=== PATIENT | female | born 1955 | race Caucasian/White ===

== ENCOUNTER 2016-09-13 18:37 | Inpatient (IN) | payer OTHER ==
[2016-09-13 19:50] LABS: AUTOMATED EOSINOPHIL 0.1 % (0-5)
[2016-09-13 20:01] LABS: BLOOD UREA NITROGEN 11 MG/DL (7-17); CALCIUM 9.5 MG/DL (8.4-10.2); CALCULATED OSMOLALITY 268 MOs/Kg (270-290); CHLORIDE 101 mEq/L (98-107); GLUCOSE 152 MG/DL (70-99); SODIUM LEVEL 138 mEq/L (137-146); TOTAL PROTEIN 7.7 G/DL (6.3-8.2)
[2016-09-13 20:11] LABS: AUTOMATED BASOPHIL 0.9 % (0-2); AUTOMATED LYMPH 8.9 % (17-44); AUTOMATED NEUTROPHIL 83.1 % (45-76); MPV 9.1 fL (7.4-10.4)
[2016-09-13] MEDS ORDERED: NS 2,000 ML IV ONE (22:30)
[2016-09-13] MEDS ORDERED: FENTANYL 100 MCG/2 ML VIAL IV ONE (22:30)
--- NOTE | 2016-09-13 22:37 | EDPRACDOC ---
- General Information Chief Complaint: Female Urogenital Problems Stated Complaint: LOWER BACK PAIN Time Seen by Provider: 09/13/16 22:11 Information Source: Patient Mode Of Arrival: Car Home Medications: Home Medications Amlodipine [Norvasc] 10 mg PO DAILY 07/02/15 Cholecalciferol [Vitamin D3 (cholecalciferol)] 1,000 units PO DAILY 07/02/15 Furosemide [Lasix] 80 mg PO DAILY 07/02/15 Loratadine [Claritin] 10 mg PO DAILY 07/02/15 Omeprazole Magnesium [Prilosec Otc] 20 mg PO DAILY 07/02/15 Potassium Chloride [Klor-Con M20] 20 meq PO DAILY 07/02/15 Pregabalin [Lyrica] 100 mg PO TID 07/02/15 Promethazine [Phenergan] 25 mg CO Q6H PRN 07/02/15 Vitamin B Complex 1 tab PO DAILY 07/02/15 Alprazolam [Xanax] 0.25 mg PO Q6H PRN 03/02/16 Amphet Asp/Amphet/D-Amphet [Adderall 20 mg Tablet] 20 mg PO DAILY 03/02/16 Biotin 5 mg PO DAILY 03/02/16 Canagliflozin [Invokana] 100 mg PO DAILY 03/02/16 Cinnamon Bark [Cinnamon] 1,000 mg PO DAILY 03/02/16 Amitriptyline HCl 50 mg PO QHS #30 tablet 03/04/16 Cefuroxime Axetil [Ceftin] 500 mg PO BID #14 tablet 03/04/16 Citalopram (anti-depressant) [Celexa] 20 mg PO DAILY #30 tablet 03/04/16 Hydromorphone HCl [Dilaudid] 2 mg PO Q12H PRN #30 03/04/16 Nystatin 1 applic TOP BID #30 grams 03/04/16 Probiotic Blend [Taylor Q] 1 tab PO BIDLS #30 tablet 03/04/16 Tramadol HCl [Ultram] 50 mg PO Q6H PRN #30 03/04/16 Trazodone HCl [Desyrel] 50 mg PO QHS #30 tablet 03/04/16 Allergies/Adverse Reactions: Allergies Allergy/AdvReac Type Severity Reaction Status Date / Time Penicillins Allergy Severe Hives* Verified 04/27/16 13:19 codeine [Codeine] Allergy Unknown Nausea/Vomi Verified 04/27/16 13:19 ting Latex, Natural Rubber Allergy Rash-Locali Verified 04/27/16 13:19 zed - History of Present Illness HPI: DYSURIA URGENCY AND FREQUENCY FOR ONE WEEK, HAS SEEN PCP, CC UA + FOR INFECTION. STARTED ON AUGMENTIN. PT STATES C&S SHOWED AUG APPROPRIATE. ALSO PAIN IN PERINEUM. PRESENT FOR ONE WEEK. NO ALLEV OR AGG FACTORS. NEVER HAD BEFORE. PAIN INTENSE. PT HAS ALSO HAD DIARRHEA FOR ONE WEEK, PRIOR TO STARTING ABX. 1-2 PER DAY. PT STATES SHE HAS BEEN EATING AND DRINKING PER NORMAL, BUT IS EXTREMELY THIRSTY NOW. Onset: one week : No (hyst) ED Past Medical History - Patient Medical History Cardiac History: Reports: Atrial Fibrillation, Hypertension, Congestive Heart Failure, Hypercholesterolemia. Denies: Heart Attack Respiratory History: Reports: Asthma, COPD, Emphysema (and Intubated/mech vent 08/2014 at [facility] [address] due to sepsis) GI/ History: Reports: Renal Disease (ACUTE RENAL FAILURE 08/2014 DUE TO SEPTICEMIA. Resolved.), Kidney (Renal Surgery) (Stent placement and removal), Urinary Tract Infection (recurrent. Has Left stent. Dr. Harris.), Gastroesophageal Reflux, Diverticulosis, PMH GI Yes/No Other (LEFT KIDNEY DECREASED FUNCTION H/O HYDRO S/P STENT) Musculoskeletal History: Reports: Arthritis (severe, chronic R ankle pain. Fibromyalgia.) Psychological History: Reports: Anxiety. Denies: Depression, Substance Use Disorder Systemic History: Reports: Diabetes (Type 2, with severe peripheral neuropathy.) . Denies: Cancer Additional Past Medical History: fibromyalgia, CHRONIC PAIN (DILAUDID) Surgical History: Reports: Cholecystectomy, Hysterectomy, Tonsillectomy/ Adnoidectomy, Other (R ankle fracture repair. Lumbar disc surgery.) - Family Medical History Reports: Hypertension (Mother), Cancer (Father: colon cancer), Cardiac Disorders (Mother: CHF.), Respiratory Disorders. Denies: Diabetes, Stroke - Social Medical History Smoking Status: Heavy tobacco smoker (5 or more cigarettes/day or daily pipe/ cigar) Social History: Denies: Substance Use Disorder EDM Review of Systems - Review of Systems ROS Negative Except as Marked: Yes All systems reviewed and were negative except as marked ROS Unobtainable: Yes Review of systems cannot be obtained due to the patient's medical condition - Physical Exam Constitutional: Alert, Confused (OR EVASIVE??), Distress (UNCOMFORTABLE) Oriented to: Person, Not Oriented, Other Last recorded Vital Signs: Last Vital Signs Temp 98.5 F 09/13/16 19:28 Pulse 88 09/13/16 19:28 Resp 20 09/13/16 19:28 BP 169/77 09/13/16 19:28 Pulse Ox 96 09/13/16 19:28 Oxygen Pulse Oxygen Saturation 96 O2 Device Room Air Oxygen Flow Rate Fraction of Inspired Oxygen ( FIO2) - HEENT Head: Normal Oropharynx: Membranes Dry (EXTREMELY) Neck: Normal - Respiratory/Cardiovascular Respiratory: Normal - CTA Cardiovascular: Normal - GI Tenderness: Diffuse, Mild. negative: Guarding, Rebound, Rigidity - Bladder: Tender External: Rash (DIFFUSE ERYTHEMATOUS MACULAR PAPULAR LESIONS WITH VESICLES, EXQUISITLY TTP. NO CREPITANCE. (?? HERPETIC VS CANDIDAL)) - Musculoskeletal Back: Normal Extremities: Normal - Integumentary Skin: Normal, Warm, Cool - Neurologic Memory Impaired: Short-term Motor Function: Normal Cerebellar: Normal Mood Description: Anxious Thought: Flight of Ideas (SOMEWHAT), Rambling Conversation. negative: Coherent Perception: Normal - Re-evaluation Re-evaluation 3 Re-evaluation Time: 00:53 (STILL MARKED CONFUSION.) - Results 09/13/16 19:32 09/13/16 19:32 WBC 13.7 xk/uL (3.8-10.8) H 09/13/16 19:32 RBC 4.95 xM/uL (4.20-5.40) 09/13/16 19:32 Hgb 13.9 g/dL (12.0-16.0) 09/13/16 19:32 Hct 42.1 % (36-47) 09/13/16 19:32 MCV 85 fL (81-99) 09/13/16 19:32 MCH 28.0 pg (27-32) 09/13/16 19:32 MCHC 32.9 g/dl (33-36) L 09/13/16 19:32 RDW 14.8 % (11.5-14.5) H 09/13/16 19:32 Plt Count 229 xk/uL (130-400) 09/13/16 19:32 MPV 9.1 fL (7.4-10.4) 09/13/16 19:32 Neut % (Auto) 83.1 % (45-76) H 09/13/16 19:32 Lymph % (Auto) 8.9 % (17-44) L 09/13/16 19:32 [place] % (Auto) 7.0 % (3-10) 09/13/16 19:32 Eos % (Auto) 0.1 % (0-5) 09/13/16 19:32 Baso % (Auto) 0.9 % (0-2) 09/13/16 19:32 Absolute Neuts (auto) 11.37 xk/uL (1.7-8.2) H 09/13/16 19:32 Absolute Lymphs (auto) 1.10 xk/uL (0.65-4.75) 09/13/16 19:32 Sodium 138 mEq/L (137-146) 09/13/16 19:32 Potassium 2.9 mEq/L (3.5-5.1) L 09/13/16 19:32 Chloride 101 mEq/L (98-107) 09/13/16 19:32 Carbon Dioxide 23 mMOL/L (22-33) 09/13/16 19:32 Anion Gap 17 mEq/L (8-16) H 09/13/16 19:32 BUN 11 MG/DL (7-17) 09/13/16 19:32 Creatinine 0.70 MG/DL (0.52-1.04) 09/13/16 19:32 Estimated GFR (MDRD) > 60 mL/min (>=60) 09/13/16 19:32 Glucose 152 MG/DL (70-99) H 09/13/16 19:32 Calculated Osmolality 268 MOs/Kg (270-290) L 09/13/16 19:32 Calcium 9.5 MG/DL (8.4-10.2) 09/13/16 19:32 Total Bilirubin 1.2 MG/DL (0.2-1.3) 09/13/16 19:32 AST 26 IU/L (14-36) 09/13/16 19:32 ALT 21 IU/L (9-52) 09/13/16 19:32 Alkaline Phosphatase 125 IU/L (55-165) 09/13/16 19:32 Total Protein 7.7 G/DL (6.3-8.2) 09/13/16 19:32 Albumin 4.1 G/DL (3.5-5.0) 09/13/16 19:32 Lipase 53 U/L (23-300) 09/13/16 19:32 Lab Results 09/13/16 09/13/16 19:32 19:32 WBC 13.7 H RBC 4.95 Hgb 13.9 Hct 42.1 MCV 85 MCH 28.0 MCHC 32.9 L RDW 14.8 H Plt Count 229 MPV 9.1 Neut % (Auto) 83.1 H Lymph % (Auto) 8.9 L [place] % (Auto) 7.0 Eos % (Auto) 0.1 Baso % (Auto) 0.9 Absolute Neuts (auto) 11.37 H Absolute Lymphs (auto) 1.10 Sodium 138 Potassium 2.9 L Chloride 101 Carbon Dioxide 23 Anion Gap 17 H BUN 11 Creatinine 0.70 Estimated GFR (MDRD) > 60 Glucose 152 H Calculated Osmolality 268 L Calcium 9.5 Total Bilirubin 1.2 AST 26 ALT 21 Alkaline Phosphatase 125 Total Protein 7.7 Albumin 4.1 Lipase 53 - EKG EKG #1 EKG Time: 23:02 -: Yes EKG interpreted by me Rate: bpm: 80 [place]: Normal Rhythm: NSR Block: None Hypertrophy: None ST: Normal - Departure Disposition: Admit IP To This Hospital Condition: Stable Final Diagnosis: Toxic metabolic encephalopathy, Candidiasis of vulva and vagina, Dehydration, Pyelonephritis, acute, Hypokalemia Diarrhea Qualifiers: Diarrhea type: unspecified type Qualified Code(s): R19.7 - Diarrhea, unspecified Instructions: Urinary Tract Infection in Women (ED), Dysuria, Acute Diarrhea ( ED) Education/Counseling Given To: Patient Education/Counseling Given Regarding: Diagnosis, Treatment, Prognosis Referrals: Umer Harris MD [Staff Physician] - As Needed Rayna Mojica NP [Primary Care Provider] - As Needed Decision to Admit Time: 01:01 Decision to admit date: 09/14/16 Decision to admit: from ED - Physician Consulted Hospitalist Time Called: 01:01 Provider Called: Gordon Hall [employer] Returned Call: 01:01
[2016-09-13 22:58] LABS: LEUKOCYTES/URINE 2+ (NEGATIVE); NITRITE/URINE NEG (NEGATIVE); URINE OCCULT BLOOD 2+ (NEG/TRACE); WBC/URINE TNTC (0-5)
[2016-09-13] MEDS ORDERED: Pharmacy Review for Metformin - IV Contrast Given SCH (23:00)
[2016-09-13 23:39] LABS: PARTIAL THROMB. TIME 25.7 SEC (22-35); PT-INR 1.1
[2016-09-14] MEDS ORDERED: KCl 10 mEq/100 ml Premix (Run) 10 MEQ/100 ML RTU IV ONE (00:07)
--- NOTE | 2016-09-14 00:54 | DIRPT ---
CLINICAL DATA: 60-year-old female with perineal infection. Evaluate for necrotizing fasciitis. EXAM: CT PELVIS WITH CONTRAST TECHNIQUE: Multidetector CT imaging of the pelvis was performed using the standard protocol following the bolus administration of intravenous contrast. CONTRAST: 100 cc Isovue 370 COMPARISON: CT dated 08/13/2016 FINDINGS: No free air or free fluid identified within the pelvis. There is partial visualization of the inferior pole of the right kidney. There is mild haziness of the perinephric fat concerning for pyelonephritis. Correlation with urinalysis recommended. The urinary bladder is only partially distended. Hysterectomy. Loose stool noted throughout the colon compatible with diarrheal state. There is mild haziness of the wall of the visualized portion of the colon which may be reactive. Colitis is not excluded. Correlation with clinical exam and stool cultures recommended. No dilated bowel loops identified. There is mild aortoiliac atherosclerotic disease. No adenopathy. Small fat containing umbilical and left inguinal hernias. There is no fluid collection or abscess in the perineal region. No soft tissue gas identified. A 1.1 x 1.0 cm ill-defined hypodensity in the lower vagina (series 3, image 44) is not well evaluated. No discrete drainable fluid collection/abscess noted in the subcutaneous soft tissues of the perineum. No soft tissue gas identified. The osseous structures are grossly unremarkable. IMPRESSION: Small ill-defined low attenuating focus in the lower vagina may represent small amount of fluid. No discrete drainable fluid collection/ abscess identified in the subcutaneous soft tissues of the perineal region. No soft tissue gas noted. Mild haziness of the fat surrounding the inferior pole of the right kidney concerning for UTI. Correlation with urinalysis recommended. Diarrheal state. Correlation with clinical exam and stool cultures recommended. Electronically Signed By: Lex Severino M.D. On: 09/14/2016 00:51
[2016-09-14] MEDS ORDERED: Fluconazole 200 mg in NS 200 MG/100 ML ML IV ONE ×2 (00:57→09:00)
[2016-09-14] MEDS ORDERED: CEFTRIAXONE 1 GM in D5W 100 ML IV ONE (00:57)
[2016-09-14] MEDS ORDERED: HYDROmorphone 1 MG INJECTION IV ONE (02:13)
--- NOTE | 2016-09-14 05:16 | HISTPHYS ---
- Chief Complaint not feeling well - History of Present Illness PRIMARY CARE PROVIDER: Rayna Mojica HPI: The patient is a 60 yo woman with recurrent severe UTIs who presents with abdominal and back pain. Patient's history is slightly limited due to her confusion/altered mental status. Onset: Started a few weeks ago but worse in last few days. Duration: intermittent. Location: upper abdomen and periumbilical. Radiation: left flank and left back Character: 8/10. Cramping. Alleviated by: Nothing. Exacerbated by: Nothing. Associated Symptoms: Diarrhea and lost control of bowels. Dysuria and hematuria. Rash in vaginal area: she has not noticed it. Confusion. Treatments: none at home except usual medications. Of note: patient has had episodes of UTIs quickly turning to severe sepsis with metabolic encephalopathy, then with IVFs developing respiratory failure and requiring emergent treatment including intubation. The emergency department nurse gave additional history that the patient was in the waiting room and had diarrhea that came out onto the chair and floor, and that as she was brought back to the treatment area she trailed a line of diarrhea behind her on the floor. - Medical History Cardiac History: Reports: Atrial Fibrillation, Hypertension, Congestive Heart Failure, Hypercholesterolemia. Denies: Heart Attack Respiratory History: Reports: Asthma, COPD, Emphysema (and Intubated/mech vent 08/2014 at [facility] due to sepsis) GI/ History: Reports: Renal Disease (ACUTE RENAL FAILURE 08/2014 DUE TO SEPTICEMIA. Resolved.), Kidney (Renal Surgery) (Stent placement and removal), Urinary Tract Infection (recurrent. Has Left stent. Dr. Harris.), Gastroesophageal Reflux, Diverticulosis, PMH GI Yes/No Other (LEFT KIDNEY DECREASED FUNCTION H/O HYDRO S/P STENT) Musculoskeletal History: Reports: Arthritis (severe, chronic R ankle pain. Fibromyalgia.) Systemic History: Reports: Diabetes (Type 2, with severe peripheral neuropathy.) . Denies: Cancer Psychological History: Reports: Anxiety. Denies: Depression, Substance Use Disorder - Surgical History Reports: Cholecystectomy, Hysterectomy, Tonsillectomy/Adnoidectomy, Other (R ankle fracture repair. Lumbar disc surgery.) - Medictions/Allergies Allergies Penicillins Allergy (Severe, Verified 04/27/16 13:19) Hives* codeine [Codeine] Allergy (Unknown, Verified 04/27/16 13:19) Nausea/Vomiting Latex, Natural Rubber Allergy (Verified 04/27/16 13:19) Rash-Localized Home Medications Amlodipine [Norvasc] 10 mg PO DAILY 07/02/15 Cholecalciferol [Vitamin D3 (cholecalciferol)] 1,000 units PO DAILY 07/02/15 Furosemide [Lasix] 80 mg PO DAILY 07/02/15 Loratadine [Claritin] 10 mg PO DAILY 07/02/15 Omeprazole Magnesium [Prilosec Otc] 20 mg PO DAILY 07/02/15 Potassium Chloride [Klor-Con M20] 20 meq PO DAILY 07/02/15 Pregabalin [Lyrica] 100 mg PO TID 07/02/15 Promethazine [Phenergan] 25 mg AL Q6H PRN 07/02/15 Vitamin B Complex 1 tab PO DAILY 07/02/15 Alprazolam [Xanax] 0.25 mg PO Q6H PRN 03/02/16 Amphet Asp/Amphet/D-Amphet [Adderall 20 mg Tablet] 20 mg PO DAILY 03/02/16 Biotin 5 mg PO DAILY 03/02/16 Canagliflozin [Invokana] 100 mg PO DAILY 03/02/16 Cinnamon Bark [Cinnamon] 1,000 mg PO DAILY 03/02/16 Amitriptyline HCl 50 mg PO QHS #30 tablet 03/04/16 Cefuroxime Axetil [Ceftin] 500 mg PO BID #14 tablet 03/04/16 Citalopram (anti-depressant) [Celexa] 20 mg PO DAILY #30 tablet 03/04/16 Hydromorphone HCl [Dilaudid] 2 mg PO Q12H PRN #30 03/04/16 Nystatin 1 applic TOP BID #30 grams 03/04/16 Probiotic Blend [Taylor Q] 1 tab PO BIDLS #30 tablet 03/04/16 Tramadol HCl [Ultram] 50 mg PO Q6H PRN #30 03/04/16 Trazodone HCl [Desyrel] 50 mg PO QHS #30 tablet 03/04/16 - Family History Reports: Hypertension (Mother), Cancer (Father: colon cancer), Cardiac Disorders (Mother: CHF.), Respiratory Disorders. Denies: Diabetes, Stroke - Social History Smoking Status: Heavy tobacco smoker (5 or more cigarettes/day or daily pipe/ cigar) Social History: Denies: Substance Use Disorder - Review of Systems GENERAL: Fever, chills, diaphoresis. Positive for fatigue/malaise. HEENT: No ear pain or discharge. No nasal discharge or bleeding. No throat pain or swelling. No eye pain or eye redness. RESPIRATORY: Mild shortness of breath. No cough, wheezing. CARDIOVASCULAR: No chest pain or palpitations. GI: Nausea, abdominal pain, diarrhea. No constipation, or bloody stool. NEUROLOGICAL: No headache or focal weakness. INTEGUMENT: no rashes, itching, or lesions. LYMPHATIC SYSTEM: no lymph node swelling or pain. MUSCULOSKELETAL: no pain or joint swelling. GENITOURINARY: No dysuria or hematuria. ENDOCRINE: No polyuria or polydipsia. HEME: No chronic anemia, bleeding, or easy bruising. - Physical Exam Vital Signs: Initial Vitals Temperature 98.5 F 09/13/16 19:28 Pulse Rate 88 09/13/16 19:28 Respiratory Rate 20 09/13/16 19:28 Blood Pressure 169/77 09/13/16 19:28 Pulse Oxygen Saturation 96 09/13/16 19:28 - Other Exam Other Exam Findings: GENERAL: Ill-appearing, obese, in acute distress. HEENT: Normocephalic, atraumatic; pupils equal and round. Nares patent, without discharge or bleeding. No oropharyngeal lesions or erythema. Mucous membranes are dry. NECK: is supple, no masses, trachea midline. Large neck circumference. RESPIRATORY: Clear to auscultation bilaterally. Chest wall movements are symmetric. No use of accessory muscles to breathe. No wheezing, rales, rhonchi. CARDIOVASCULAR: Normal S1, S2. No rubs, or gallops. PMI non-displaced. Carotids : no carotid bruits. No bradycardia or tachycardia. DP pulses 2+ bilaterally. GI: soft, non-distended, normal active bowel sounds. No hepatosplenomegaly. Tenderness generalized. CVA tenderness. No rebound or guarding. INTEGUMENT: Clean, dry, and intact. Perineum and buttocks, upper thighs: erythematous papular rash, tender to palpation. /INSPECTOR STRUCTURAL BONDING: External examination: Generalized tenderness, erythematous papular rash also involving the labia and vaginal area. No abscess identified. No vaginal discharge. MUSCULOSKELETAL: Moving all extremities. No cyanosis. No clubbing. Edema: 1+ pitting edema bilaterally. NEUROLOGICAL: Cranial nerves 2-12 grossly intact. Motor 4/5 throughout. Reflexes : 2+ bilaterally. Babinski: toes downgoing bilaterally. Intact Finger to nose. Sensory grossly intact to light touch. Intact rapid alternating movements bilaterally. No pronator drift. PSYCHIATRIC: Oriented to person and place. Not oriented to date or year. Sometimes responds to questions with answers that do not address the question. LYMPHATIC: No cervical lymphadenopathy. No supraclavicular lymphadenopathy. - Lab Results Laboratory Tests 09/13/16 09/13/16 09/13/16 19:32 19:32 19:32 WBC 13.7 H RBC 4.95 Hgb 13.9 Hct 42.1 MCV 85 MCH 28.0 MCHC 32.9 L RDW 14.8 H Plt Count 229 MPV 9.1 Neut % (Auto) 83.1 H Lymph % (Auto) 8.9 L [place] % (Auto) 7.0 Eos % (Auto) 0.1 Baso % (Auto) 0.9 Absolute Neuts (auto) 11.37 H Absolute Lymphs (auto) 1.10 PT INR APTT Sodium 138 Potassium 2.9 L Chloride 101 Carbon Dioxide 23 Anion Gap 17 H BUN 11 Creatinine 0.70 Estimated GFR (MDRD) > 60 Glucose 152 H POC Capillary Glucose Hemoglobin A1c 7.0 H Calculated Osmolality 268 L Lactic Acid Calcium 9.5 Total Bilirubin 1.2 AST 26 ALT 21 Alkaline Phosphatase 125 Total Protein 7.7 Albumin 4.1 Lipase 53 Urine Color Urine Clarity Urine pH Ur Specific [place] Urine Protein Urine Glucose (UA) Urine Ketones Urine Occult Blood Urine Nitrite Urine Bilirubin Urine Urobilinogen Ur Leukocyte Esterase Urine RBC Urine WBC Urine WBC Clumps Ur Epithelial Cells Urine Bacteria Stool Occult Blood 09/13/16 09/13/16 09/13/16 22:20 23:20 23:20 WBC RBC Hgb Hct MCV MCH MCHC RDW Plt Count MPV Neut % (Auto) Lymph % (Auto) [place] % (Auto) Eos % (Auto) Baso % (Auto) Absolute Neuts (auto) Absolute Lymphs (auto) PT 11.1 INR 1.1 APTT 25.7 Sodium Potassium Chloride Carbon Dioxide Anion Gap BUN Creatinine Estimated GFR (MDRD) Glucose POC Capillary Glucose Hemoglobin A1c Calculated Osmolality Lactic Acid 0.9 Calcium Total Bilirubin AST ALT Alkaline Phosphatase Total Protein Albumin Lipase Urine Color Yellow Urine Clarity Cldy Urine pH 6.0 Ur Specific [place] 1.005 Urine Protein 2+ H Urine Glucose (UA) 3+ H Urine Ketones 2+ H Urine Occult Blood 2+ H Urine Nitrite Neg Urine Bilirubin Neg Urine Urobilinogen <2.0 Ur Leukocyte Esterase 2+ H Urine RBC 10-20 H Urine WBC Tntc H Urine WBC Clumps Present H Ur Epithelial Cells 1+ Urine Bacteria 1+ H Stool Occult Blood - Diagnostic Findings EK bpm. Normal sinus rhythm. Low voltage QRS. Cannot rule out inferior infarct, age undetermined. Reviewed EKG personally. CT pelvis, viewed personally: EXAM: CT PELVIS WITH CONTRAST TECHNIQUE: Multidetector CT imaging of the pelvis was performed using the standard protocol following the bolus administration of intravenous contrast. CONTRAST: 100 cc Isovue 370 COMPARISON: CT dated 08/13/2016 FINDINGS: No free air or free fluid identified within the pelvis. There is partial visualization of the inferior pole of the right kidney. There is mild haziness of the perinephric fat concerning for pyelonephritis. Correlation with urinalysis recommended. The urinary bladder is only partially distended. Hysterectomy. Loose stool noted throughout the colon compatible with diarrheal state. There is mild haziness of the wall of the visualized portion of the colon which may be reactive. Colitis is not excluded. Correlation with clinical exam and stool cultures recommended. No dilated bowel loops identified. There is mild aortoiliac atherosclerotic disease. No adenopathy. Small fat containing umbilical and left inguinal hernias. There is no fluid collection or abscess in the perineal region. No soft tissue gas identified. A 1.1 x 1.0 cm ill-defined hypodensity in the lower vagina (series 3, image 44) is not well evaluated. No discrete drainable fluid collection/abscess noted in the subcutaneous soft tissues of the perineum. No soft tissue gas identified. The osseous structures are grossly unremarkable. IMPRESSION: Small ill-defined low attenuating focus in the lower vagina may represent small amount of fluid. No discrete drainable fluid collection/ abscess identified in the subcutaneous soft tissues of the perineal region. No soft tissue gas noted. Mild haziness of the fat surrounding the inferior pole of the right kidney concerning for UTI. Correlation with urinalysis recommended. Diarrheal state. Correlation with clinical exam and stool cultures recommended. - Assessment (1) Pyelonephritis, acute N10 - ACUTE PYELONEPHRITIS Acute Present on Admission: Yes HISTORY of previous episode 10/2015: E coli and MRSA in urine. E coli sensitive to ceftriaxone will continue current antibiotic. Culture obtained from [place] in the patient 's ureter reveals a Staph species that is MRSA vancomycin has been started. PICC line has been ordered. Patient states that she is capable of administering her own IV antibiotics as she did it for her dad. UPDATE 09/14/16: Likely with severe infection. Acute episode. Admit. Cultures ordered. IV antibiotics. History of respiratory distress leading to respiratory failure and intubation when patient develops severe infections, so monitor respiratory status closely in hospital. Consult her urologist, Dr. Harris, if infection is not improving. (2) Candidiasis of vulva and vagina B37.3 - CANDIDIASIS OF VULVA AND VAGINA Acute Present on Admission: Yes Severe. Plan: IV fluconazole. Topical clotrimazole. (3) Metabolic encephalopathy G93.41 - METABOLIC ENCEPHALOPATHY Acute Present on Admission: Yes Patient arrived disoriented, and trailed diarrhea onto the floor behind her as she proceeded into the ED treatment area. She has a history of metabolic encephalopathy involving disorientation, bizarre behavior, and dissheveled state with incontinence of feces and urine when she has a severe urinary tract infection. When the infection resolves, she returns to a fully oriented and functional person. Plan: Neuro checks. Treat infection. (4) Infectious diarrhea A09 - INFECTIOUS GASTROENTERITIS AND COLITIS, UNSPECIFIED Acute Present on Admission: Yes Diarrhea, loss of bowel control. Presumed infectious. Plan: Stool for hemoccult, culture, and c diff. (5) Type II diabetes mellitus with neurological manifestations, uncontrolled E11.49 - TYPE 2 DIABETES W OTH DIABETIC NEUROLOGICAL COMPLICATION; E11.65 - TYPE 2 DIABETES MELLITUS WITH HYPERGLYCEMIA Chronic Qualifiers: Diabetes mellitus complication detail: with unspecified neuropathy Diabetes mellitus senior living insulin use: without rat exterminator use Qualified Code( s): E11.40 - Type 2 diabetes mellitus with diabetic neuropathy, unspecified; E11.65 - Type 2 diabetes mellitus with hyperglycemia Plan: Sliding scale insulin and FSBS q ac and hs. Ordered a1c and urine microalbumin. Stop invokana; could be contributing to the candidiasis. - Plan Caution with IVF due to history of sudden respiratory distress with infection and fluid administration. Case Care Discussed with: Patient, Nursing Staff
[2016-09-14] MEDS: NS 1,000 ML IV SCH ×2 (06:07→15:44)
[2016-09-14] MEDS ORDERED: ALPRAZOLAM 0.25 MG TAB PO PRN (07:47)
[2016-09-14] MEDS ORDERED: GLUCAGON 1 MG VIAL SQ PRN (07:49)
[2016-09-14] MEDS ORDERED: SENNA CONCENTRATE TAB PO PRN (07:49)
[2016-09-14] MEDS ORDERED: ACETAMINOPHEN 325 MG/TAB TABLET PO PRN (07:49)
[2016-09-14] MEDS ORDERED: PROMETHAZINE 25 MG/ML VIAL IV PRN (07:49)
[2016-09-14] MEDS ORDERED: GLUCOSE (ORAL GEL) 15 GM TUBE PO PRN (07:49)
[2016-09-14] MEDS ORDERED: DEXTROSE 25 GM/50 ML PFS IV PRN (07:49)
[2016-09-14] MEDS ORDERED: Aluminum;Magnesium;Simethicone 30 ML UDC PO PRN (07:49)
[2016-09-14] MEDS ORDERED: ACETAMINOPHEN 325 MG SUPP PR PRN (07:49)
[2016-09-14] MEDS ORDERED: BENZONATATE 100 MG PERLES PO PRN (07:49)
[2016-09-14] MEDS ORDERED: SIMETHICONE 80 MG TAB PO PRN (07:49)
[2016-09-14] MEDS ORDERED: GUAIFEN 100 MG-DEXTROMETH 10 MG PER 5 ML PO PRN (07:49)
[2016-09-14] MEDS ORDERED: Docusate Sodium 100 MG CAP PO PRN (07:49)
[2016-09-14] MEDS ORDERED: BISACODYL 5 MG TAB PO PRN (07:49)
[2016-09-14] MEDS: MORPHINE 2 MG/ML INJECTION IV PRN ×2 (08:22→20:57)
[2016-09-14] MEDS: ONDANSETRON HCL 4 MG/2 ML VIAL IV PRN ×2 (08:31→20:58)
[2016-09-14] MEDS ORDERED: BIOTIN 5 MG PO SCH (09:00)
[2016-09-14] MEDS ORDERED: CLOTRIMAZOLE 1% PV SCH (09:00)
[2016-09-14] MEDS ORDERED: Non-Formulary Medication ITEM (Omeprazole Magnesium [Prilosec Otc] 20 MG) PO SCH (09:00)
[2016-09-14] MEDS ORDERED: CLOTRIMAZOLE 1% CREAM 15 GM TOP SCH (09:00)
[2016-09-14] MEDS ORDERED: VITAMIN B COMPLEX PO SCH (09:00)
[2016-09-14] MEDS ORDERED: LORATADINE 10 MG PO SCH (09:00)
[2016-09-14] MEDS ORDERED: Vaccine Screening Complete SCH (11:00)
[2016-09-14] MEDS: PROBIOTIC BLEND TAB PO SCH ×2 (12:41→18:30)
[2016-09-14] MEDS: Loratadine 10 MG TAB PO SCH (12:41)
[2016-09-14] MEDS: VIT B-C COMPLEX (NEPHROVITE) TAB PO SCH (12:41)
[2016-09-14] MEDS: POTASSIUM CHLORIDE 20 MEQ TAB PO SCH (12:42)
[2016-09-14] MEDS: CHOLECALCIFEROL 1000 UNITS TAB PO SCH (12:42)
[2016-09-14] MEDS: REGULAR INSULIN 100 UNITS/ML - 3 ML VIAL SQ SCH ×3 (12:46→21:12)
[2016-09-14] MEDS ORDERED: PREGABALIN 100 MG CAP PO SCH (14:00)
[2016-09-14] MEDS: PREGABALIN 25 MG CAP PO SCH ×2 (15:44→20:58)
[2016-09-14] MEDS: TRAMADOL HCL 50 MG TAB PO PRN ×2 (15:48→23:00)
[2016-09-14] MEDS: CLOTRIMAZOLE 1% CREAM 15 GM TOP SCH ×2 (17:12→21:00)
[2016-09-14] MEDS: PANTOPRAZOLE 40 MG TAB PO SCH (18:30)
[2016-09-14] MEDS: ENOXAPARIN 60 MG/0.6 ML PFS SQ SCH (18:31)
[2016-09-14] MEDS: CLOTRIMAZOLE 1% PV SCH (20:59)
[2016-09-14] MEDS: TRAZODONE 50 MG TAB PO SCH (20:59)
[2016-09-14] MEDS ORDERED: Non-Formulary Medication ITEM (Pregabalin [Lyrica] 75 MG) PO SCH (23:15)
[2016-09-15] MEDS: MORPHINE 2 MG/ML INJECTION IV PRN ×2 (01:56→21:43)
[2016-09-15] MEDS: CEFTRIAXONE 1 GM in D5W 100 ML IV SCH (01:56)
[2016-09-15] MEDS: NS 1,000 ML IV SCH ×2 (01:57→17:42)
[2016-09-15] MEDS ORDERED: Magnesium Sulfate 2 gm/D5W 2 GM/50 ML RTU IV ONE (03:00)
[2016-09-15] MEDS: KCl 10 mEq/100 ml Premix (Run) 10 MEQ/100 ML RTU IV SCH ×4 (03:28→11:07)
[2016-09-15 03:51] VITALS: BMI 40.7
[2016-09-15 05:38] LABS: MPV 8.7 fL (7.4-10.4)
[2016-09-15 05:47] LABS: BLOOD UREA NITROGEN 9 MG/DL (7-17); CALC CORRECTED 9.7 MG/DL (8.4-10.2); CALCIUM 8.4 MG/DL (8.4-10.2); CALCULATED OSMOLALITY 269 MOs/Kg (270-290); CHLORIDE 106 mEq/L (98-107); GLUCOSE 119 MG/DL (70-99); SODIUM LEVEL 140 mEq/L (137-146); TOTAL PROTEIN 5.7 G/DL (6.3-8.2)
[2016-09-15] MEDS: PANTOPRAZOLE 40 MG TAB PO SCH (05:47)
[2016-09-15] MEDS: PREGABALIN 25 MG CAP PO SCH ×3 (05:47→20:39)
[2016-09-15] MEDS: REGULAR INSULIN 100 UNITS/ML - 3 ML VIAL SQ SCH ×4 (06:47→20:30)
[2016-09-15] MEDS: Loratadine 10 MG TAB PO SCH (08:23)
[2016-09-15] MEDS: FUROSEMIDE 80 MG TAB PO SCH (08:23)
[2016-09-15] MEDS: POTASSIUM CHLORIDE 20 MEQ TAB PO SCH ×2 (08:23→21:43)
[2016-09-15] MEDS: VIT B-C COMPLEX (NEPHROVITE) TAB PO SCH (08:24)
[2016-09-15] MEDS: AMLODIPINE 10 MG TAB PO SCH (08:24)
[2016-09-15] MEDS: PROBIOTIC BLEND TAB PO SCH ×2 (08:24→17:13)
[2016-09-15] MEDS: CHOLECALCIFEROL 1000 UNITS TAB PO SCH (08:24)
[2016-09-15] MEDS: Citalopram HBr 40 MG TABLET PO SCH (08:33)
[2016-09-15] MEDS ORDERED: Citalopram HBr 40 MG TABLET PO SCH (09:00)
[2016-09-15] MEDS: Fluconazole 400 mg in NS 400 MG/200 ML RTU IV SCH (09:42)
[2016-09-15] MEDS: CLOTRIMAZOLE 1% CREAM 15 GM TOP SCH ×2 (09:43→20:39)
--- NOTE | 2016-09-15 10:05 | GENMEDPROG ---
Chief Complaint: pyelonephritis, yeast infection, DM-2, TME, diarrhea, obesity Subjective Note: Patient refused her IV potassium because of burning sensation; have changed to PO with meals and increased the dose. Currently: Reports: Diarrhea DVT Prophylaxis: Yes - Physical Examination Vital Signs and I&O: Last Vital Signs Temp 98.8 F 09/15/16 08:20 Pulse 68 09/15/16 08:20 Resp 20 09/15/16 08:20 BP 147/69 09/15/16 08:20 Pulse Ox 94 09/15/16 08:20 Oxygen Pulse Oxygen Saturation 94 O2 Device Room Air Oxygen Flow Rate 2 Fraction of Inspired Oxygen ( FIO2) Intake & Output 09/12/16 09/13/16 09/14/16 09/15/16 23:59 23:59 23:59 23:59 Intake Total 2313 667 Balance 2313 667 Patient's weight 105.007 kg 104.411 kg General: Alert, Oriented x3, Cooperative, Mild distress, Obese, Weakness HEENT: Normal, PERRLA, EOMI, Anicteric Sclera, Mucous membr. moist/pink Neck: Full range of motion, Normal Trachea alignment, Normal inspection Lymphatics: Normal Respiratory: Normal - CTA Cardiovascular: Regular rate and rhythm, Normal S1, Normal S2 GI: Normal bowel sounds, Soft, Non tender, No masses Extremities/Musculoskeletal: Normal pulses, DJD, FROM. negative: Edema Skin: Warm,Dry and Intact, No rashes, No significant lesion Neurological: Normal speech, Normal tone, Cranial nerves 3-12 NL Psych/Mental Status: Normal Affect, Cooperative, Lethargic Lab/DI/Studies Reviewed: Laboratory Tests 09/15/16 09/15/16 09/15/16 00:52 00:52 04:30 WBC Hgb Hct Plt Count Sodium 140 Potassium 2.6 L Chloride 106 Carbon Dioxide 25 Anion Gap 12 BUN 9 Creatinine 0.70 Estimated GFR (MDRD) > 60 Glucose 119 H POC Capillary Glucose Calculated Osmolality 269 L Corrected Calcium 9.7 Magnesium 1.90 Total Bilirubin 0.4 AST 18 ALT 23 Alkaline Phosphatase 92 Total Protein 5.7 L Albumin 2.7 L 09/15/16 09/15/16 04:30 05:29 WBC 8.9 Hgb 12.2 D Hct 37.0 Plt Count 198 Sodium Potassium Chloride Carbon Dioxide Anion Gap BUN Creatinine Estimated GFR (MDRD) Glucose POC Capillary Glucose 221 H Calculated Osmolality Corrected Calcium Magnesium Total Bilirubin AST ALT Alkaline Phosphatase Total Protein Albumin - Assessment (1) Metabolic encephalopathy Acute G93.41 - METABOLIC ENCEPHALOPATHY Comment/Plan: Patient arrived disoriented, and trailed diarrhea onto the floor behind her as she proceeded into the ED treatment area. She has a history of metabolic encephalopathy involving disorientation, bizarre behavior, and dissheveled state with incontinence of feces and urine when she has a severe urinary tract infection. When the infection resolves, she returns to a fully oriented and functional person. Plan: Neuro checks. Treat infection. (2) Pyelonephritis, acute Acute N10 - ACUTE PYELONEPHRITIS Comment/Plan: HISTORY of previous episode : E coli and MRSA in urine. Current cultures are negative. UPDATE 09/14/16: blood and urine cultures are negative. Likely with severe infection. (3) Diarrhea Acute R19.7 - DIARRHEA, UNSPECIFIED Qualifiers: Diarrhea type: presumed infectious Qualified Code(s): A09 - Infectious gastroenteritis and colitis, unspecified Comment/Plan: Stool culture and stool for Clostridium difficile have been ordered but not yet collected. Patient is still having loose or incontinent stools. (4) Hypokalemia Acute E87.6 - HYPOKALEMIA Comment/Plan: K=2.9 Have ordered supplement but patient is refusing it. (5) Dehydration Acute E86.0 - DEHYDRATION Comment/Plan: continue hydration with IV fluid; with KCl as tolerated. (6) Candidiasis of vulva and vagina Acute B37.3 - CANDIDIASIS OF VULVA AND VAGINA Comment/Plan: Severe. Plan: IV fluconazole. Topical clotrimazole.
[2016-09-15] MEDS: ENOXAPARIN 60 MG/0.6 ML PFS SQ SCH (17:13)
[2016-09-15] MEDS: TRAZODONE 50 MG TAB PO SCH (20:39)
[2016-09-15] MEDS: TRAMADOL HCL 50 MG TAB PO PRN (20:39)
[2016-09-15] MEDS: CLOTRIMAZOLE 1% PV SCH (20:40)
[2016-09-15] MEDS ORDERED: CLOTRIMAZOLE 1% PV SCH (22:00)
[2016-09-16] MEDS: NS 1,000 ML IV SCH ×4 (01:24→21:10)
[2016-09-16] MEDS: CEFTRIAXONE 1 GM in D5W 100 ML IV SCH (01:24)
[2016-09-16] MEDS: PREGABALIN 25 MG CAP PO SCH ×3 (06:07→21:11)
[2016-09-16] MEDS: PANTOPRAZOLE 40 MG TAB PO SCH (06:07)
[2016-09-16] MEDS: REGULAR INSULIN 100 UNITS/ML - 3 ML VIAL SQ SCH ×4 (06:07→21:52)
[2016-09-16] MEDS: TRAMADOL HCL 50 MG TAB PO PRN ×3 (06:15→21:10)
[2016-09-16] MEDS: AMLODIPINE 10 MG TAB PO SCH (07:56)
[2016-09-16] MEDS: FUROSEMIDE 80 MG TAB PO SCH (07:56)
[2016-09-16] MEDS: Fluconazole 400 mg in NS 400 MG/200 ML RTU IV SCH (08:25)
[2016-09-16] MEDS: POTASSIUM CHLORIDE 20 MEQ TAB PO SCH ×3 (08:25→17:08)
[2016-09-16] MEDS: Loratadine 10 MG TAB PO SCH (08:26)
[2016-09-16] MEDS: Citalopram HBr 40 MG TABLET PO SCH (08:26)
[2016-09-16] MEDS: CHOLECALCIFEROL 1000 UNITS TAB PO SCH (08:26)
[2016-09-16] MEDS: CLOTRIMAZOLE 1% CREAM 15 GM TOP SCH ×2 (08:26→21:11)
[2016-09-16] MEDS: PROBIOTIC BLEND TAB PO SCH ×2 (12:06→17:08)
[2016-09-16] MEDS: VIT B-C COMPLEX (NEPHROVITE) TAB PO SCH (12:06)
--- NOTE | 2016-09-16 16:34 | GENMEDPROG ---
Chief Complaint: pyelonephritis, yeast vaginovulvitis, TME, diarrhea Subjective Note: Patient today reports that she has hydronephrosis on one side and needs to see Dr Harris for this. Requests that he be consulted. Currently: Reports: Diarrhea DVT Prophylaxis: Yes - Physical Examination Vital Signs and I&O: Last Vital Signs Temp 97.8 F 09/16/16 14:45 Pulse 63 09/16/16 14:45 Resp 18 09/16/16 14:45 BP 138/65 09/16/16 14:45 Pulse Ox 95 09/16/16 14:45 Oxygen Pulse Oxygen Saturation 95 O2 Device Room Air Oxygen Flow Rate 2 Fraction of Inspired Oxygen ( 25 FIO2) Intake & Output 09/13/16 09/14/16 09/15/16 09/16/16 23:59 23:59 23:59 23:59 Intake Total 2313 1013 480 Balance 2313 1013 480 Patient's weight 105.007 kg 104.411 kg 105.318 kg General: Alert, Oriented x3, Cooperative, Mild distress, Obese, Weakness HEENT: Normal, PERRLA, EOMI, Anicteric Sclera, Mucous membr. moist/pink Neck: Full range of motion, Normal Trachea alignment, Normal inspection Lymphatics: Normal Respiratory: Normal - CTA Cardiovascular: Regular rate and rhythm, Normal S1, Normal S2 GI: Normal bowel sounds, Soft, Non tender, No masses Extremities/Musculoskeletal: Normal pulses, DJD, FROM. negative: Edema Skin: Warm,Dry and Intact, No rashes, No significant lesion Neurological: Normal speech, Normal tone, Cranial nerves 3-12 NL Psych/Mental Status: Normal Affect, Cooperative, Lethargic Lab/DI/Studies Reviewed: CT Abd/pelvis: No free air or free fluid identified within the pelvis. There is partial visualization of the inferior pole of the right kidney. There is mild haziness of the perinephric fat concerning for pyelonephritis. Correlation with urinalysis recommended. The urinary bladder is only partially distended. Hysterectomy. Loose stool noted throughout the colon compatible with diarrheal state. There is mild haziness of the wall of the visualized portion of the colon which may be reactive. Colitis is not excluded. Correlation with clinical exam and stool cultures recommended. No dilated bowel loops identified. There is mild aortoiliac atherosclerotic disease. No adenopathy. Small fat containing umbilical and left inguinal hernias. There is no fluid collection or abscess in the perineal region. No soft tissue gas identified. A 1.1 x 1.0 cm ill-defined hypodensity in the lower vagina (series 3, image 44) is not well evaluated. No discrete drainable fluid collection/abscess noted in the subcutaneous soft tissues of the perineum. No soft tissue gas identified. The osseous structures are grossly unremarkable. IMPRESSION: Small ill-defined low attenuating focus in the lower vagina may represent small amount of fluid. No discrete drainable fluid collection/ abscess identified in the subcutaneous soft tissues of the perineal region. No soft tissue gas noted. Mild haziness of the fat surrounding the inferior pole of the right kidney concerning for UTI. Correlation with urinalysis recommended. Diarrheal state. Correlation with clinical exam and stool cultures recommended. Electronically Signed By: Lex Severino M.D. On: 09/14/2016 00:51 - Assessment (1) Metabolic encephalopathy Acute G93.41 - METABOLIC ENCEPHALOPATHY Comment/Plan: Patient arrived disoriented, and trailed diarrhea onto the floor behind her as she proceeded into the ED treatment area. She has a history of metabolic encephalopathy involving disorientation, bizarre behavior, and dissheveled state with incontinence of feces and urine when she has a severe urinary tract infection. When the infection resolves, she returns to a fully oriented and functional person. Plan: Neuro checks. Treat infection. (2) Pyelonephritis, acute Acute N10 - ACUTE PYELONEPHRITIS Comment/Plan: HISTORY of previous episode : E coli and MRSA in urine. Current cultures are negative. UPDATE 09/14/16: blood and urine cultures are negative. Likely with severe infection. (3) Diarrhea Acute R19.7 - DIARRHEA, UNSPECIFIED Qualifiers: Diarrhea type: presumed infectious Qualified Code(s): A09 - Infectious gastroenteritis and colitis, unspecified Comment/Plan: Stool culture and stool for Clostridium difficile have been ordered but not yet collected. Patient is still having loose or incontinent stools. (4) Hypokalemia Acute E87.6 - HYPOKALEMIA Comment/Plan: K=2.9 Have ordered supplement but patient is refusing it. (5) Dehydration Acute E86.0 - DEHYDRATION Comment/Plan: continue hydration with IV fluid; with KCl as tolerated. (6) Candidiasis of vulva and vagina Acute B37.3 - CANDIDIASIS OF VULVA AND VAGINA Comment/Plan: Severe. Plan: IV fluconazole. Topical clotrimazole.
[2016-09-16] MEDS: ENOXAPARIN 60 MG/0.6 ML PFS SQ SCH (17:08)
[2016-09-16] MEDS: MORPHINE 2 MG/ML INJECTION IV PRN (18:50)
[2016-09-16] MEDS: TRAZODONE 50 MG TAB PO SCH (21:11)
[2016-09-16] MEDS: CLOTRIMAZOLE 1% PV SCH (21:11)
[2016-09-17] MEDS: NS 1,000 ML IV SCH ×4 (02:35→20:51)
[2016-09-17] MEDS: CEFTRIAXONE 1 GM in D5W 100 ML IV SCH (02:35)
[2016-09-17] MEDS: TRAMADOL HCL 50 MG TAB PO PRN ×2 (05:18→17:14)
[2016-09-17] MEDS: PREGABALIN 25 MG CAP PO SCH ×3 (05:18→20:55)
[2016-09-17] MEDS: PANTOPRAZOLE 40 MG TAB PO SCH (05:19)
[2016-09-17] MEDS: REGULAR INSULIN 100 UNITS/ML - 3 ML VIAL SQ SCH ×4 (05:33→20:22)
[2016-09-17] MEDS: AMLODIPINE 10 MG TAB PO SCH (08:12)
[2016-09-17] MEDS: Citalopram HBr 40 MG TABLET PO SCH (08:12)
[2016-09-17] MEDS: POTASSIUM CHLORIDE 20 MEQ TAB PO SCH ×3 (08:12→17:13)
[2016-09-17] MEDS: CLOTRIMAZOLE 1% CREAM 15 GM TOP SCH ×2 (08:12→20:51)
[2016-09-17] MEDS: Loratadine 10 MG TAB PO SCH (08:12)
[2016-09-17] MEDS: CHOLECALCIFEROL 1000 UNITS TAB PO SCH (08:12)
[2016-09-17] MEDS: FUROSEMIDE 80 MG TAB PO SCH (08:12)
[2016-09-17] MEDS: Fluconazole 400 mg in NS 400 MG/200 ML RTU IV SCH (08:12)
[2016-09-17] MEDS: MORPHINE 2 MG/ML INJECTION IV PRN (08:18)
[2016-09-17] MEDS: PROBIOTIC BLEND TAB PO SCH ×2 (11:29→17:13)
[2016-09-17] MEDS: VIT B-C COMPLEX (NEPHROVITE) TAB PO SCH (11:29)
--- NOTE | 2016-09-17 13:47 | GENMEDPROG ---
Chief Complaint: pyelonephritis, yeast vulvovaginitis, TME, diarrhea Currently: Reports: Diarrhea DVT Prophylaxis: Yes - Physical Examination Vital Signs and I&O: Last Vital Signs Temp 97.8 F 09/17/16 09:41 Pulse 62 09/17/16 09:41 Resp 18 09/17/16 09:41 BP 140/61 09/17/16 09:41 Pulse Ox 95 09/17/16 09:41 Oxygen Pulse Oxygen Saturation 95 O2 Device Room Air Oxygen Flow Rate 2 Fraction of Inspired Oxygen ( 21 FIO2) Intake & Output 09/14/16 09/15/16 09/16/16 09/17/16 23:59 23:59 23:59 23:59 Intake Total 2313 1013 2767 1244 Output Total 200 Balance 2313 1013 2767 1044 Patient's weight 105.007 kg 104.411 kg 105.318 kg 106.141 kg General: Alert, Oriented x3, Cooperative, Mild distress, Obese, Weakness HEENT: Normal, PERRLA, EOMI, Anicteric Sclera, Mucous membr. moist/pink Neck: Full range of motion, Normal Trachea alignment, Normal inspection Lymphatics: Normal Respiratory: Normal - CTA Cardiovascular: Regular rate and rhythm, Normal S1, Normal S2 GI: Normal bowel sounds, Soft, Non tender, No masses Extremities/Musculoskeletal: Normal pulses, DJD, FROM. negative: Edema Skin: Warm,Dry and Intact, No rashes, No significant lesion Neurological: Normal speech, Normal tone, Cranial nerves 3-12 NL Psych/Mental Status: Normal Affect, Cooperative, Lethargic - Assessment (1) Pyelonephritis, acute Acute N10 - ACUTE PYELONEPHRITIS Comment/Plan: HISTORY of previous episode : E coli and MRSA in urine. Current cultures are negative. UPDATE 09/14/16: blood and urine cultures are negative. Patient had been partially treated prior to admission- states she took 1 tablet of Levaquin. (2) Diarrhea Acute R19.7 - DIARRHEA, UNSPECIFIED Qualifiers: Diarrhea type: presumed infectious Qualified Code(s): A09 - Infectious gastroenteritis and colitis, unspecified Comment/Plan: Stool culture and stool for Clostridium difficile have been ordered but not yet collected. Patient is still having loose or incontinent stools. (3) Hypokalemia Acute E87.6 - HYPOKALEMIA Comment/Plan: K=2.9 Have ordered supplement but patient is refusing it. (4) Candidiasis of vulva and vagina Acute B37.3 - CANDIDIASIS OF VULVA AND VAGINA Comment/Plan: Severe. Plan: IV fluconazole. Topical clotrimazole. (5) Dehydration Acute E86.0 - DEHYDRATION Comment/Plan: continue hydration with IV fluid; with KCl as tolerated. (6) Metabolic encephalopathy Resolved G93.41 - METABOLIC ENCEPHALOPATHY Comment/Plan: Patient arrived disoriented, and trailed diarrhea onto the floor behind her as she proceeded into the ED treatment area. She has a history of metabolic encephalopathy involving disorientation, bizarre behavior, and dissheveled state with incontinence of feces and urine when she has a severe urinary tract infection. When the infection resolves, she returns to a fully oriented and functional person.
[2016-09-17] MEDS: ENOXAPARIN 60 MG/0.6 ML PFS SQ SCH (17:13)
--- NOTE | 2016-09-17 17:40 | PCM.UROCON ---
Consult Date: 09/17/16 Consult Requesting Physician: Umer Harris Consult Reason: Urinary Tract Infection - History of Present Illness 60-year-old white female with a history of recurrent cystitis. She had previous left ureteral obstruction and stone removal in October of 2015. She has been noncompliant and has not maintain her follow-ups. She she has been admitted to the hospital with recurrent cystitis and has received IV antibiotics. Because of her history Urology was asked to evaluate her at this time. States she has been having low back pain - Past Medical History Cardiac History: Reports: Atrial Fibrillation, Hypertension, Congestive Heart Failure, Hypercholesterolemia. Denies: Heart Attack Respiratory History: Reports: Asthma, COPD, Emphysema (and Intubated/mech vent 08/2014 at [facility] due to sepsis) GI/ History: Reports: Renal Disease (ACUTE RENAL FAILURE 08/2014 DUE TO SEPTICEMIA. Resolved.), Kidney (Renal Surgery) (Stent placement and removal), Urinary Tract Infection (recurrent. Has Left stent. Dr. Harris.), Gastroesophageal Reflux, Hepatitis (type) (Unsure of what kind) Musculoskeletal History: Reports: Arthritis (severe, chronic R ankle pain. Fibromyalgia.) Systemic History: Reports: Diabetes (Type 2, with severe peripheral neuropathy.) . Denies: Cancer Psychological History: Reports: Anxiety. Denies: Depression, Substance Use Disorder - Surgical History Reports: Back Surgery (LUMBAR DISKECTOMY ), Cholecystectomy, Hysterectomy, Kidney Surgery (Stent placement and removal), T&A - Family History Reports: Hypertension (Mother), Cancer (Father: colon cancer), Cardiac Disorders (Mother: CHF.), Respiratory Disorders. Denies: Diabetes, Stroke - Allergies Allergies Penicillins Allergy (Severe, Verified 04/27/16 13:19) Hives* codeine [Codeine] Allergy (Unknown, Verified 04/27/16 13:19) Nausea/Vomiting Latex, Natural Rubber Allergy (Verified 04/27/16 13:19) Rash-Localized - Medications Home Medications Amlodipine [Norvasc] 10 mg PO DAILY 07/02/15 Cholecalciferol [Vitamin D3 (cholecalciferol)] 1,000 units PO DAILY 07/02/15 Furosemide [Lasix] 80 mg PO DAILY 07/02/15 Loratadine [Claritin] 10 mg PO DAILY 07/02/15 Omeprazole Magnesium [Prilosec Otc] 20 mg PO DAILY 07/02/15 Potassium Chloride [Klor-Con M20] 20 meq PO DAILY 07/02/15 Vitamin B Complex 1 tab PO DAILY 07/02/15 Alprazolam [Xanax] 0.25 mg PO Q6H PRN 03/02/16 Amphet Asp/Amphet/D-Amphet [Adderall 20 mg Tablet] 20 mg PO DAILY 03/02/16 Biotin 5 mg PO DAILY 03/02/16 Canagliflozin [Invokana] 100 mg PO DAILY 03/02/16 Amitriptyline HCl 50 mg PO QHS #30 tablet 03/04/16 Tramadol HCl [Ultram] 50 mg PO Q6H PRN #30 03/04/16 Trazodone HCl [Desyrel] 50 mg PO QHS #30 tablet 03/04/16 Citalopram (anti-depressant) [Celexa] 40 mg PO DAILY 09/14/16 Hydromorphone HCl [Dilaudid] 2 - 4 mg PO Q12H PRN 09/14/16 Loperamide HCl/Simethicone [Imodium Multi-Symptom Rel Cplt] 1 each PO TID PRN Pregabalin [Lyrica] 75 mg PO TID 09/14/16 Promethazine HCl 25 mg PO Q4-6H PRN 09/14/16 - Social History Travel Outside of [place] in the Last 3 Months?: No Lives: With Family Smoking Status: Heavy tobacco smoker (5 or more cigarettes/day or daily pipe/ cigar) Social History: Denies: Substance Use Disorder - Exam Vital Signs: Temperature: 98.0 F (09/17/16 15:02) HR: 60 (09/17/16 15:02) RR: 18 (09/17/16 15:02) BP: 131/60 (09/17/16 15:02) Pulse Ox: 97 (09/17/16 15:02) General: Alert, Oriented x3, Cooperative Gastrointestinal: negative: Distended, Tender Musculoskeletal/Extremities: negative: Tenderness, Edema Skin: Warm,Dry and Intact, No rashes Neurological: Normal speech Psych/Mental Status: Appropriate, Normal Affect, Cooperative - Labs Result Diagrams: 09/15/16 04:30 09/15/16 04:30 Exam(s): [id number] CT/CT ABD-PELV W/IV CM CLINICAL DATA: Right upper quadrant abdominal pain with nausea for 6 months. Previous cholecystectomy and complete hysterectomy. EXAM: CT ABDOMEN AND PELVIS WITH CONTRAST TECHNIQUE: Multidetector CT imaging of the abdomen and pelvis was performed using the standard protocol following bolus administration of intravenous contrast. CONTRAST: 100 ml Isovue 370. COMPARISON: Abdominal ultrasound 07/27/2016. Abdominal pelvic CT 03/02/2016. FINDINGS: Lower chest: Stable linear scarring in both lung bases and stable 2.3 cm right pericardiac cyst on image 5. There is a small hiatal hernia. Hepatobiliary: The liver has a stable appearance without suspicious findings. Stable mild biliary prominence status post cholecystectomy, within physiologic limits. Pancreas: Unremarkable. No pancreatic ductal dilatation or surrounding inflammatory changes. Spleen: Normal in size with stable low-density lesions. No suspicious findings. Adrenals/Urinary Tract: Both adrenal glands appear normal. There are stable small cysts in the lower pole of the right kidney. The right kidney otherwise appears normal. Left renal cortical thinning, collecting system dilatation and delayed contrast excretion are similar to the prior examination. No urinary tract calculi are seen. There are no definite residual filling defects within the left renal collecting system. The bladder appears unremarkable. Stomach/Bowel: No evidence of bowel wall thickening, distention or surrounding inflammatory change. There is moderate stool within the rectum. Vascular/Lymphatic: There are no enlarged abdominal or pelvic lymph nodes. Stable small lymph nodes within the shonna hepatis and retroperitoneum. There is diffuse atherosclerosis of the aorta, its branches and the iliac arteries. Reproductive: Hysterectomy. No evidence of adnexal mass. Other: Fact containing umbilical hernia does not appear significantly changed. Musculoskeletal: No acute or significant osseous findings. There are postsurgical changes within the symphysis pubis. Grade 1 anterolisthesis at L3-4 secondary to underlying chronic L3 pars defects again noted. IMPRESSION: 1. No acute findings or explanation for the patient's symptoms identified. There is no significant biliary dilatation status post cholecystectomy. 2. No residual colonic wall thickening identified. No signs of acute inflammation. 3. Persistent impaired renal function on the left with delayed contrast excretion, cortical thinning and collecting system dilatation. 4. Other incidental findings are stable, including a right pericardial cyst, atherosclerosis, umbilical hernia and bilateral L3 pars defects. Electronically Signed By: Jonny Parra M.D. On: 08/13/2016 11:54 Exam(s): [id number] CT/CT PELVIS W/IV CM CLINICAL DATA: 60-year-old female with perineal infection. Evaluate for necrotizing fasciitis. EXAM: CT PELVIS WITH CONTRAST TECHNIQUE: Multidetector CT imaging of the pelvis was performed using the standard protocol following the bolus administration of intravenous contrast. CONTRAST: 100 cc Isovue 370 COMPARISON: CT dated 08/13/2016 FINDINGS: No free air or free fluid identified within the pelvis. There is partial visualization of the inferior pole of the right kidney. There is mild haziness of the perinephric fat concerning for pyelonephritis. Correlation with urinalysis recommended. The urinary bladder is only partially distended. Hysterectomy. Loose stool noted throughout the colon compatible with diarrheal state. There is mild haziness of the wall of the visualized portion of the colon which may be reactive. Colitis is not excluded. Correlation with clinical exam and stool cultures recommended. No dilated bowel loops identified. There is mild aortoiliac atherosclerotic disease. No adenopathy. Small fat containing umbilical and left inguinal hernias. There is no fluid collection or abscess in the perineal region. No soft tissue gas identified. A 1.1 x 1.0 cm ill-defined hypodensity in the lower vagina (series 3, image 44) is not well evaluated. No discrete drainable fluid collection/abscess noted in the subcutaneous soft tissues of the perineum. No soft tissue gas identified. The osseous structures are grossly unremarkable. IMPRESSION: Small ill-defined low attenuating focus in the lower vagina may represent small amount of fluid. No discrete drainable fluid collection/ abscess identified in the subcutaneous soft tissues of the perineal region. No soft tissue gas noted. Mild haziness of the fat surrounding the inferior pole of the right kidney concerning for UTI. Correlation with urinalysis recommended. Diarrheal state. Correlation with clinical exam and stool cultures recommended. Electronically Signed By: Lex Severino M.D. On: 09/14/2016 00:51 Recent Urine and Blood cultures negative - Assessment and Plan (1) Recurrent cystitis Acute Comment/Plan: Hx of cystitis- cultures negative (2) Renal calculi Acute N20.0 - CALCULUS OF KIDNEY Comment/Plan: No stones on CT on 08/17- will plan Renal US to check upper tracts
[2016-09-17] MEDS: CLOTRIMAZOLE 1% PV SCH (20:52)
[2016-09-17] MEDS: TRAZODONE 50 MG TAB PO SCH (20:55)
--- NOTE | 2016-09-17 21:02 | DIRPT ---
CLINICAL DATA: Generalized back pain for 4 days. Acute kidney disease. EXAM: ABDOMEN - 1 VIEW COMPARISON: CT of the abdomen and pelvis 09/13/2016 FINDINGS: The bowel gas pattern is normal. There is large amount of formed stool throughout the colon. No radio-opaque calculi or other significant radiographic abnormality are seen. Ligamentous anchors are seen within the bilateral pubic rami. IMPRESSION: Large amount of stool throughout the colon. No radiopaque calculi identified. Electronically Signed By: Tash De La Vega M.D. On: 09/17/2016 21:00
[2016-09-18] MEDS: TRAMADOL HCL 50 MG TAB PO PRN (00:03)
--- NOTE | 2016-09-18 00:35 | DIRPT ---
CLINICAL DATA: Personal history of hydronephrosis. Assess for hydronephrosis. Initial encounter. EXAM: RENAL / URINARY TRACT ULTRASOUND COMPLETE COMPARISON: CT of the abdomen and pelvis from 08/13/2016 FINDINGS: Right Kidney: Length: 13.2 cm. There is prominence of the right renal pelvis, without evidence of hydronephrosis.. Echogenicity within normal limits. No mass visualized. Left Kidney: Length: 8.8 cm. Not well characterized due to moderate left renal atrophy. No evidence of hydronephrosis. Bladder: Appears normal for degree of bladder distention. IMPRESSION: 1. No evidence of hydronephrosis. 2. Moderate left renal atrophy again noted. Electronically Signed By: Brennon Dewey M.D. On: 09/18/2016 00:32
[2016-09-18] MEDS: MORPHINE 2 MG/ML INJECTION IV PRN (01:21)
[2016-09-18] MEDS: CEFTRIAXONE 1 GM in D5W 100 ML IV SCH (01:22)
[2016-09-18] MEDS: REGULAR INSULIN 100 UNITS/ML - 3 ML VIAL SQ SCH ×2 (05:48→13:11)
[2016-09-18] MEDS: PANTOPRAZOLE 40 MG TAB PO SCH (05:49)
[2016-09-18] MEDS: PREGABALIN 25 MG CAP PO SCH ×2 (05:49→13:15)
[2016-09-18] MEDS: NS 1,000 ML IV SCH (05:49)
[2016-09-18 07:35] LABS: BLOOD UREA NITROGEN 14 MG/DL (7-17); CALCIUM 9.1 MG/DL (8.4-10.2); CALCULATED OSMOLALITY 273 MOs/Kg (270-290); CHLORIDE 105 mEq/L (98-107); GLUCOSE 86 MG/DL (70-99); SODIUM LEVEL 142 mEq/L (137-146)
[2016-09-18] MEDS: Loratadine 10 MG TAB PO SCH (07:59)
[2016-09-18] MEDS: CLOTRIMAZOLE 1% CREAM 15 GM TOP SCH (07:59)
[2016-09-18] MEDS: CHOLECALCIFEROL 1000 UNITS TAB PO SCH (07:59)
[2016-09-18] MEDS: FUROSEMIDE 80 MG TAB PO SCH (07:59)
[2016-09-18] MEDS: POTASSIUM CHLORIDE 20 MEQ TAB PO SCH ×2 (07:59→13:16)
[2016-09-18] MEDS: AMLODIPINE 10 MG TAB PO SCH (07:59)
[2016-09-18] MEDS: Citalopram HBr 40 MG TABLET PO SCH (08:04)
[2016-09-18] MEDS ORDERED: FLUCONAZOLE 100 MG TAB PO SCH (09:00)
--- NOTE | 2016-09-18 09:33 | PCM.DCS92 ---
- Final/Secondary Discharge Diagnosis (1) Pyelonephritis, acute Acute N10 - ACUTE PYELONEPHRITIS Present on Admission: Yes Comment: HISTORY of previous episode 10/2015: E coli and MRSA in urine. Current cultures are negative. UPDATE 09/14/16: blood and urine cultures are negative. Patient had been partially treated prior to admission- states she took 1 tablet of Levaquin. Has had 5 days of IV antibiotics now. Renal ultrasound does not show any significant hydronephrosis at this time. Per Dr. Harris's recommendation, will discharge home with Bactrim DS 1 daily for prophylaxis. (2) Diarrhea Acute R19.7 - DIARRHEA, UNSPECIFIED presumed infectious A09 - Infectious gastroenteritis and colitis, unspecified Comment: Stool culture and stool for Clostridium difficile have been ordered but not yet collected. Patient is incontinent of bowel and bladder. Not actually having watery stools. (3) Hypokalemia Resolved E87.6 - HYPOKALEMIA Present on Admission: Yes Comment: K=4.1 Have ordered supplement po. (4) Candidiasis of vulva and vagina Acute B37.3 - CANDIDIASIS OF VULVA AND VAGINA Present on Admission: Yes Comment: Severe. continue topical clotrimazole. (5) Dehydration Acute E86.0 - DEHYDRATION Present on Admission: Yes Comment: Has received hydration with IV fluid; with KCl as tolerated. (6) Metabolic encephalopathy Resolved G93.41 - METABOLIC ENCEPHALOPATHY Present on Admission: Yes Comment: Patient arrived disoriented, and trailed diarrhea onto the floor behind her as she proceeded into the ED treatment area. She has a history of metabolic encephalopathy involving disorientation, bizarre behavior, and dissheveled state with incontinence of feces and urine when she has a severe urinary tract infection. When the infection resolves, she returns to a fully oriented and functional person. Discharge Disposition: Discharge w/ Home Health Discharge Condition: Improved Cognitive Discharge Status: Unimpaired Fuctional Discharge Status: Inability to drive due to severe medical illness, Deconditioning, Unable to leave home without assistance, Other (incontinent of bowel and bladder) Physician Follow up/Referrals: Umer Harris MD [Staff Physician] - As Needed Rayna Mojica NP [Primary Care Provider] - As Needed New Prescriptions: Clotrimazole [Gyne-Lotrimin] 45 gm PV HS #1 tube Fluconazole [Diflucan] 200 mg PO DAILY #5 tablet POTASSIUM CHLORIDE Tablet [K-DUR 20 mEq Tablet*] 20 meq PO TIDWM #90 tab.er.prt Probiotic Blend [Taylor Q] 1 tab PO BIDLS #60 tablet Discharge Home Medication List Amlodipine [Norvasc] 10 mg PO DAILY 07/02/15 [History Confirmed 09/14/16 Last Taken 04/22/16] Cholecalciferol [Vitamin D3 (cholecalciferol)] 1,000 units PO DAILY 07/02/15 [ History Confirmed 09/14/16 Last Taken 09/13/16] Furosemide [Lasix] 80 mg PO DAILY 07/02/15 [History Confirmed 09/14/16 Last Taken 09/13/16] Omeprazole Magnesium [Prilosec Otc] 20 mg PO DAILY 07/02/15 [History Confirmed 09/14/16 Last Taken 09/13/16] Vitamin B Complex 1 tab PO DAILY 07/02/15 [History Confirmed 09/14/16 Last Taken 09/13/16] Alprazolam [Xanax] 0.25 mg PO Q6H PRN 03/02/16 [History Confirmed 09/14/16 Last Taken 09/13/16] Canagliflozin [Invokana] 100 mg PO DAILY 03/02/16 [History Confirmed 09/14/16 Last Taken 09/13/16] Amitriptyline HCl 50 mg PO QHS #30 tablet 03/04/16 [Rx Confirmed 09/14/16 Last Taken 04/22/16] Tramadol HCl [Ultram] 50 mg PO Q6H PRN #30 03/04/16 [Rx Confirmed 09/14/16 Last Taken 09/13/16] Trazodone HCl [Desyrel] 50 mg PO QHS #30 tablet 03/04/16 [Rx Confirmed 09/14/16 Last Taken 09/13/16] Citalopram (anti-depressant) [Celexa] 40 mg PO DAILY 09/14/16 [History Confirmed 09/14/16 Last Taken 09/13/16] Hydromorphone HCl [Dilaudid] 2 - 4 mg PO Q12H PRN 09/14/16 [History Confirmed Last Taken Unknown] Loperamide HCl/Simethicone [Imodium Multi-Symptom Rel Cplt] 1 each PO TID PRN [History Confirmed 09/14/16 Last Taken 09/13/16] Pregabalin [Lyrica] 75 mg PO TID 09/14/16 [History Confirmed 09/14/16 Last Taken 09/13/16] Promethazine HCl 25 mg PO Q4-6H PRN 09/14/16 [History Confirmed 09/14/16 Last Taken Unknown] Clotrimazole [Gyne-Lotrimin] 45 gm PV HS #1 tube 09/18/16 [Rx Last Taken Unknown ] Fluconazole [Diflucan] 200 mg PO DAILY #5 tablet 09/18/16 [Rx Last Taken Unknown ] POTASSIUM CHLORIDE Tablet [K-DUR 20 mEq Tablet*] 20 meq PO TIDWM #90 tab.er.prt 09/18/16 [Rx Last Taken Unknown] Probiotic Blend [Taylor Q] 1 tab PO BIDLS #60 tablet 09/18/16 [Rx Last Taken Unknown] O2 Device: Room Air Diet at Discharge: Heart Healthy, Low Salt, Diabetic, 1800 Calorie Activity: As Tolerated Call Office For: Worsening Symptoms Discontinue use of:: Alcohol, All Types of Tobacco - DC Summary Notes Hospital Course Note:: Discharge summary on patient named DEEPAK HINKLE admitted to [facility] on 09/14/16 by Gordon Hall MD. Date of discharge is []. Code: 42831 (>30min.) - Physical Exam Vital Signs: Last Vital Signs Temp 96.2 F L 09/18/16 05:21 Pulse 64 09/18/16 05:21 Resp 18 09/18/16 05:21 BP 120/69 09/18/16 05:21 Pulse Ox 95 09/18/16 05:21 Oxygen Pulse Oxygen Saturation 95 O2 Device Room Air Oxygen Flow Rate 2 Fraction of Inspired Oxygen ( 21 FIO2) Constitutional: No apparent distress, Alert Oriented to: Time, Person, Place - HEENT Head: Normal Eye: Normal Oropharynx: Normal Tympanic Membrane: Normal ENT EAC: Normal Nose: No Symptoms Reported - Respiratory/Cardiovascular Respiratory: Normal - CTA Cardiovascular: Normal - GI Auscultation: Normal Palpation: Normal Tenderness: Non tender. negative: Guarding, Rebound, Rigidity Rectal Exam: Deferred - Musculoskeletal Back: Normal Extremities: Normal - Integumentary Skin: Warm, Dry Lymphatics: Normal - Neurologic Memory Impaired: Short-term Motor Function: Normal Cranial Nerve: Normal Cerebellar: Normal Mood Description: Normal Thought: Coherent, Flight of Ideas (SOMEWHAT) Perception: Normal
[2016-09-18] MEDS: VIT B-C COMPLEX (NEPHROVITE) TAB PO SCH (13:11)
[2016-09-18] MEDS: PROBIOTIC BLEND TAB PO SCH (13:15)
[2016-09-18 15:05] VITALS: BP 127/59; PULSE 67; TEMP 97.8
== END 2016-09-18 17:05 | disposition home health service (06) | DRG 689 ==
LOC: ED 18:37 → EDINP 09-14 05:12 → PCU 09-14 15:35 → MPS3 09-15 14:24
PROVIDERS: ADMIT Internal Medicine; ATTEND Family Medicine
DX: N10 Acute pyelonephritis (principal); G93.41 Metabolic encephalopathy; E11.40 Type 2 diabetes mellitus with diabetic neuropathy, unspecified; E11.65 Type 2 diabetes mellitus with hyperglycemia; I11.0 Hypertensive heart disease with heart failure; I50.9 Heart failure, unspecified; B37.3 Candidiasis of vulva and vagina; A09 Infectious gastroenteritis and colitis, unspecified; F17.210 Nicotine dependence, cigarettes, uncomplicated; N20.0 Calculus of kidney; J45.909 Unspecified asthma, uncomplicated; E87.6 Hypokalemia; E86.0 Dehydration; Z79.2 Long term (current) use of antibiotics; J44.9 Chronic obstructive pulmonary disease, unspecified; K21.9 Gastro-esophageal reflux disease without esophagitis; M79.7 Fibromyalgia; Z79.84 Long term (current) use of oral hypoglycemic drugs; Z79.899 Other long term (current) drug therapy
CPT/HCPCS: 36415; 72193; 74000; 76770; 80048; 80053; 81001; 82043; 82270; 82272; 82962; 83036; 83605; 83690; 83735; 84132; 85025; 85027; 85610; 85730; 87040; 87086; 87220; 87529; 93005; 94660; 96361; 96365; 96366; 96372; 96375; 99284; 99406; A9698; J0696; J1170; J1450; J1650; J2270; J2405; J3010; J3475; J3480; J3490; J7060